=== PATIENT | male | born 1990 ===

== ENCOUNTER 2019-01-25 19:11 | Emergency (ER) | payer BC ==
--- NOTE | 2019-01-25 20:11 | UC ---
Eye Complaint HPI - HPI Summary HPI Summary: 29 y/o male presents to the urgent care c/o left eye redness and clear discharge w/ irritation and blurred vision s/p injury w/ a tree branch around 1730pm today. Pt reports he was mowing his lawn when a tree branch scratches his left eye. He then took a shower and he then developed blurred vision and eye irritation w/ clear eye discharge. Pt states eye pain is 1/10 and denies fever, photophobia, BERGERON, dizziness, SOB, chest pain,abdominal pain, N/V/D. Pt states he has been healthy lately. He can't recall when was the last Tetanus vaccine. - History of Current Complaint Chief Complaint: UCEye Stated Complaint: EYE COMPLAINT Time Seen by Provider: 01/25/19 19:59 Hx Obtained From: Patient Onset/Duration: Sudden Onset, Lasting Hours - 3 hrs, Still Present Timing: Constant Severity Initially: Mild Severity Currently: Mild Pain Intensity: 1 - irritation Pain Scale Used: 0-10 Numeric Location of Injury: Conjunctiva - left conjunctiva redness and clear eye discharge Character: Foreign Body Sensation Aggravating Factor(s): Blinking Alleviating Factor(s): Nothing Associated Signs And Symptoms: Positive: Drainage (Clear). Negative: Photophobia, Vision Impairment Bilateral, Fever, Swelling Related History: Other - left eye scratched w/ a tree branch - Risk Factors Penetrating Injury Risk Factor: Negative Globe Rupture Risk Factors: Negative Acute Glaucoma Risk Factors: Negative Optic Artery Occlusion Risk Factors: Negative - Allergies/Home Medications Allergies/Adverse Reactions: Allergies Allergy/AdvReac Type Severity Reaction Status Date / Time amoxicillin Allergy Unknown Rash Verified 01/25/19 19:38 PMH/Surg Hx/FS Hx/Imm Hx Previously Healthy: Yes - Pt denies PMHX - Surgical History Surgical History: None - Family History Known Family History: Positive: Cardiac Disease, Diabetes - Social History Occupation: Employed Full-time Lives: With Family Alcohol Use: None Substance Use Type: None Smoking Status (MU): Never Smoked Tobacco - Immunization History Hx Tetanus, Diphtheria Vaccination: No - Pt can't recall when was last Tdap given Review of Systems All Other Systems Reviewed And Are Negative: Yes Constitutional: Positive: Negative Skin: Positive: Negative Eyes: Positive: Blurred Vision - left eye, Drainage - clear, Eye Redness - left eye s/o injury w/ a tree branch. Negative: Diplopia, Photophobia ENT: Positive: Negative Respiratory: Positive: Negative Cardiovascular: Positive: Negative Gastrointestinal: Positive: Negative Genitourinary: Positive: Negative Motor: Positive: Negative Neurovascular: Positive: Negative Musculoskeletal: Positive: Negative Neurological: Positive: Negative Psychological: Positive: Negative Is Patient Immunocompromised?: No Physical Exam - Summary Physical Exam Summary: Vital Signs Reviewed: Yes General: Well appearing, well nourished adolescent male in no apparent pain distress Eyes: Positive: RTeye with conjunctiva clear, sclera is white. LF eye with inflamed conjunctiva and clear eye discharge. B/L PERRLA, EOMI w/o any nystagmus or strabismus. Fundi appears benign. Disks are well delineated. There are no hemorrhages or exudates. visual page are within normal limits. No foreign body under eyelids observed with naked eye. No chemosis, No photophobia. Normal fundoscopic exam; no proptosis, exophthalmos, nystagmus. ENT: Positive: Normal ENT inspection, Hearing grossly normal, Pharynx normal, Nasal congestion, Nasal drainage - clear, TMs normal - B/L external ear canal clear , TM's WNL. Negative: Tonsillar swelling, Tonsillar exudate Neck: Positive: Supple, Nontender, No Lymphadenopathy Respiratory: Positive: Chest nontender, Lungs clear, Normal breath sounds, No respiratory distress Cardiovascular: Positive: RRR, No Murmur, Pulses Normal, Brisk Capillary Refill Abdomen Description: Positive: Nontender, No Organomegaly, Soft. Negative: CVA Tenderness (R), CVA Tenderness (L) Bowel Sounds: Positive: Present Musculoskeletal: Positive: Strength Intact, ROM Intact, No Edema Neurological Exam: Normal Psychological Exam: Normal Skin Exam: Normal Triage Information Reviewed: Yes Vital Signs: Initial Vital Signs Temp 100.2 F 01/25/19 19:34 Pulse 85 01/25/19 19:34 Resp 16 01/25/19 19:34 BP 141/89 01/25/19 19:34 Pulse Ox 100 01/25/19 19:34 Eye Complaint Course/Dx - Course Course Of Treatment: 29 y/o male presents to the urgent care c/o left eye redness and clear discharge w/ irritation and blurred vision s/p injury w/ a tree branch around 1730pm today. Pt reports he was mowing his lawn when a tree branch scratches his left eye. He then took a shower and he then developed blurred vision and eye irritation w/ clear eye discharge. Pt states eye pain is 1/10 and denies fever, photophobia, BERGERON, dizziness, SOB, chest pain,abdominal pain, N/V/D. Pt states he has been healthy lately. He can't recall when was the last Tetanus vaccine. Hx obtained. RT eye with conjunctiva clear, sclera is white. LF eye with inflamed conjunctiva and clear eye discharge. B/L PERRLA, EOMI w/o any nystagmus or strabismus. Fundi appears benign. Disks are well delineated. There are no hemorrhages or exudates. visual page are within normal limits. No foreign body under eyelids observed with naked eye. 2 drops of Tetracaine optha drops placed on Pts left eye, then irrigated with saline drops to flush any foreign particles, then fluorescein instillation and examination with a slit lamp. Positive corneal abrasion observed at 9 oclock. No foreign body identified. After procedure Pt felt better. Pt's temp re-taken: 99.4F. Pt Rx Erythromycin ophthalmic ointment, first dose given at the clinic and ointment dispense home and advised to f/u at [facility] [place] for further evaluation and treatment on his corneal abrasion. Pt given a Tdap by the nurse. Pt's BP is elevated today advised to decrease salt in diet, monitor BP and f/ u with PCP for further management. D/C instructions explained. Pt understood and agreed w/ plan of care. - Differential Dx/Diagnosis Differential Diagnosis/HQI/PQRI: Corneal Abrasion, Foreign Body, Periorbital Cellulitis, Orbital Cellulitis, Uveitis Provider Diagnosis: Left corneal abrasion, Elevated BP without diagnosis of hypertension Discharge - Sign-Out/Discharge Documenting (check all that apply): Patient Departure - D/C home All imaging exams completed and their final reports reviewed: No Studies - Discharge Plan Condition: Stable Disposition: HOME Prescriptions: Erythromycin OPTH OINT* [Erythromycin 0.5% OPTH OINT*] 1 applic LEFT EYE TID #1 ophth.oint Patient Education Materials: Corneal Abrasion (ED) Referrals: Prieto Hammond MD [Primary Care Provider] - 3 Days Alfonso Teran MD [Medical Doctor] - 2 Days Additional Instructions: 1-Please apply Erythromycin ophthalmic oint as instructed and finish the full course of treatment to to prevent infection. 2-Please f/u with eyeglass frame truer DR Teran in 1-2 days for further evaluation and treatment on your corneal abrasion 3- You were given a Tdap vaccine today 4- Your BP is elevated today. please decrease salt in your diet, monitor BP and if it continues to be elevated please f/u with your PCP for further management. - Billing Disposition and Condition Condition: STABLE Disposition: Home - Attestation Statements Provider Attestation: I was available for consult. This patient was seen by the G[facility]. The patient was not presented to, seen by, or examined by me. -Abigail
[2019-01-25] MEDS ORDERED: Tetracaine 0.5% OPTH.SOL 4 ML* 1 DROP BTL LEFT EYE ONE (20:18)
[2019-01-25] MEDS ORDERED: Eye Irrigation Solution 30 ML BOTTLE LEFT EYE ONE (20:18)
[2019-01-25] MEDS ORDERED: Fluorescein Sodium TOPICAL* 1 MG TEST STRIP OPHTHALMIC ONE (20:18)
[2019-01-25] MEDS ORDERED: Erythromycin OPTH OINT* APPLIC OINT LEFT EYE ONE (20:35)
[2019-01-25] MEDS ORDERED: Tetan/Diph/Pertus SYR(Tdap)* 0.5 ML SYR(BOOSTRIX) use SYR IM ONE (20:35)
== END 2019-01-25 21:20 | disposition home or self-care (01) ==
LOC: UCEAST 19:11
DX: S05.02XA Injury of conjunctiva and corneal abrasion without foreign body, left eye, initial encounter (principal); W22.8XXA Striking against or struck by other objects, initial encounter; Y93.H9 Activity, other involving exterior property and land maintenance, building and construction; Y92.096 Garden or yard of other non-institutional residence as the place of occurrence of the external cause; Z23 Encounter for immunization; R03.0 Elevated blood-pressure reading, without diagnosis of hypertension; Z88.0 Allergy status to penicillin
CPT/HCPCS: 90715; 99202; A9270-GY; G0463